=== PATIENT | female | born 1970 | race Caucasian/White ===

== ENCOUNTER 2018-02-05 05:33 | Inpatient (IN) ==
--- NOTE | 2018-01-05 11:58 | Anesthesiology Consultation ---
Date of Service January 05, 2018 Assessment & Plan (1) Encounter for pre-operative examination: Plan: - Patient anxious RE: SAB; history of scoliosis- discussed SAB versus GA- to discuss further AM DOS.* Chart Review Chart Review: Patient seen in Pre Admission Testing Teaching & Discussion Pre-Anesthesia Teaching/Discussion Notes: Instructed NPO after midnight before surgery,except medications with 15 cc of water. Medication instructions provided according to the PAT guidelines. History Surgery Operation Date: 02/05/18 08:30 Proposed Procedures p Left Total Knee Arthroplasty - Marcio Patel DO Height/Weight Height: 5 ft Weight: 94.3 kg Allergies Allergy/AdvReac Type Severity Reaction Status Date / Time Penicillins AdvReac Severe Anaphylaxis Verified 12/29/17 08:45 Medications Home Medications Medication Instructions Recorded Confirmed Last Taken ibuprofen 600 - 800 mg PO QID PRN 12/29/17 12/29/17 Unknown lactobacillus combination no.4 1 tab PO QPM 12/29/17 12/29/17 Unknown [Probiotic] olmesartan 20 mg PO QAM 12/29/17 12/29/17 Unknown omeprazole 20 mg PO QAM 12/29/17 12/29/17 Unknown vitamin X99-gfffp acid 2 tab PO QPM 12/29/17 12/29/17 Unknown Past Medical History Medical History Chronic back pain Diverticular disease GERD (gastroesophageal reflux disease) Hypertension Morbid obesity Osteoarthritis Scoliosis Temporomandibular joint disorder NEVER LOCKED Past Family History Family History Mother Family history of diabetes mellitus Grandmother Family hx of colon cancer Past Surgical History Surgical History History of endometrial ablation History of hysterectomy + USO Hx of laparoscopy 2/2 ENDOMETRIOSIS Past Anesthesia History No Family Hx of Anesthesia Complications Post op grogginess x 1 episode with hysterectomy. History of PONV Yes Motion Sickness Screening History of Motion Sickness: Yes Social History Smoking Status: Never smoker Do You Dip or Chew Tobacco: No Hx Alcohol Use: Yes Alcohol type: wine alcohol intake frequency: holidays/special occasions only Hx Substance Use: No Exercise / Class Metabolic Activity III < 4 Walking/Shop/Light housework Review of Systems Patient denies chest pain, shortness of breath, joint pain, reflux, cough, wheezing, palpitations. Physical Exam Vital Signs VITALS BP 134/83 P 71 TEMP 98.1 RESP 18 SP02 95%RA Full neck and c-spine range of motion. Full TMJ range of motion. TMD 4 finger breaths Mallampati Score 2 Dentition: intact Lungs: clear throughout to auscultation Cardiac: regular rate and rhythm, no murmurs noted Spine: normal Carotid arteries: negative bruit Extremities: no edema Testing Electrocardiogram Date: 01/05/18 Findings: + NSR @ (67) Chest X-Ray Date: 01/05/18 Findings: + NAD Laboratory Results 01/05/18 12:23 01/05/18 11:34 Blood Type O Positive 01/05/18 12:23 Antibody Screen NEGATIVE 01/05/18 12:23 PT 10.1 Seconds (9.0-12.0) 01/05/18 12:23 INR 1.0 (0.9-1.1) 01/05/18 12:23 APTT 25.9 Seconds (21.0-31.0) 01/05/18 12:23
--- NOTE | 2018-01-05 11:59 | PAT Medication Instructions ---
Medication Instructions Date of Service January 05, 2018 Home Medications ibuprofen 600 - 800 mg PO QID PRN lactobacillus combination no.4 1 tab PO QPM olmesartan 20 mg PO QAM omeprazole 20 mg PO QAM vitamin D57-ichwo acid 2 tab PO QPM Per surgeon's instructions ibuprofen 600 - 800 mg PO QID PRN Hold the morning of surgery olmesartan 20 mg PO QAM Take morning of surgery Take the following medication the morning of surgery with a sip of water, OTHERWISE NOTHING TO EAT OR DRINK AFTER MIDNIGHT: omeprazole 20 mg PO QAM Take evening before surgery lactobacillus combination no.4 1 tab PO QPM vitamin S51-fbzux acid 2 tab PO QPM Other Notes If you have any questions please call us at [phone] or [phone] or [phone] or [phone]
--- NOTE | 2018-01-05 12:50 | XRay Report ---
XR chest Pre-admission PA/Lat CLINICAL HISTORY: PAT preoperative evaluation COMPARISON STUDY: No previous studies for comparison. FINDINGS: The bones soft tissues and hemidiaphragms are normal. The cardiomediastinal silhouette is n ormal. The lungs are clear. The pulmonary vasculature is normal. IMPRESSION: Negative chest. The above report was generated using voice recognition software. It may contain grammatical, syntax or spelling errors. Electronically signed by: Srikanth Rice M.D. 01/05/2018 12:49 PM
[2018-01-05 13:10] LABS: Basophils # (auto) 0.02 K/uL (0-0.2); Basophils % (auto) 0.3 %; Eosinophils # (auto) 0.14 K/uL (0-0.5); Eosinophils % (auto) 1.9 %; Hemoglobin 13.6 g/dL (12.0-16.0); Immature Granulocytes # (auto) 0.01 K/uL (0.00-0.02); Immature Granulocytes % (auto) 0.1 %; Lymphocytes # (auto) 2.41 K/uL (1.2-3.4); Mean Corpuscular Hgb Conc 33.2 g/dL (32-36); Mean Corpuscular Volume 89.5 fL (80-100); Mean Platelet Volume 10.1 fL (7.4-10.4); Monocytes # (auto) 0.84 K/uL (0.11-0.59); Monocytes % (auto) 11.2 %; Neutrophils % (auto) 54.5 %; Platelet Count 253 K/uL (130-400); RDW Coefficient of Variation 13.3 % (11.5-14.5); RDW Standard Deviation 43.5 fL (36.4-46.3); Red Blood Count 4.58 M/uL (4.2-5.4); White Blood Count 7.52 K/uL (4.8-10.8)
[2018-01-05 13:27] LABS: Partial Thromboplastin Time 25.9 Seconds (21.0-31.0); Prothrombin Time 10.1 Seconds (9.0-12.0)
[2018-01-05 13:33] LABS: BUN Creatinine Ratio 18.1 (10-20); Calcium 8.6 mg/dl (8.5-10.1); Creatinine Clr Calc Pharmacy 124.7 ml/min; Est GFR (African American) 126.9; Est GFR (Non-African American) 109.5; Potassium 3.9 mmol/L (3.5-5.1)
[2018-02-05] MEDS ORDERED: ACETAMINOPHEN 500 MG TAB PO SCH (06:00)
[2018-02-05] MEDS ORDERED: VANCOMYCIN HCL 1,500 MG in SODIUM CHLORIDE 0.9% 500 ML IV SCH ×2 (06:00→18:00)
[2018-02-05] MEDS ORDERED: FAMOTIDINE 20 MG TAB PO SCH (06:00)
[2018-02-05] MEDS ORDERED: ROPIVACAINE 0.5% HCL/PF 150 MG, BUPIVACAINE 0.5% MPF 30 ML, EPINEPHrine 30MG/30ML (OR U... INFIL SCH (06:00)
[2018-02-05] MEDS ORDERED: GABAPENTIN 300 MG x 3 PO SCH (06:00)
[2018-02-05] MEDS ORDERED: TRANEXAMIC ACID 1,000 MG **IV Pre-op IV SCH (06:00)
[2018-02-05] MEDS ORDERED: LR 60ML/HR IV SCH (06:00)
[2018-02-05] MEDS ORDERED: BUPIVACAINE 0.5 % 5 MG/1 ML PF 10ML VIAL ONE (06:25)
[2018-02-05] MEDS ORDERED: ROPIVACAINE 0.5% 5 MG/ML 30 ML VIAL ONE (06:26)
[2018-02-05] MEDS ORDERED: TRANEXAMIC ACID 1,000 MG **IV Intra-op IV SCH (06:30)
[2018-02-05] MEDS: LR 500ML BOLUS, THEN 15ML/HR IV SCH ×5 (06:33→14:27)
--- NOTE | 2018-02-05 06:40 | History & Physical Report ---
Date of Service February 05, 2018 Assessment & Plan (1) Osteoarthritis of left knee: We will proceed with a left total knee arthroplasty. Postoperatively she will be started on aspirin for DVT prophylaxis. She will be kept in the hospital for postop medical management. She plans to discuss discharge options with case management while she is here in the hospital. Present on Admission?: Yes History of Present Illness Chief Complaint: Primary osteoarthritis of the left knee Primary Care Provider: NO PCP Helen is a pleasant 47-year-old female who has been complaining about chronic increasing left knee pain. She has lateral sided knee pain mostly when she ambulates. She also notices a significant valgus deformity and feels like her foot turns out on her from time to time. X-rays and clinical examination have shown advanced lateral compartmental arthritis in the knee. After failing extensive conservative treatment including physical therapy, cortisone injections, and Synvisc injections, she has elected to proceed with a left total knee arthroplasty. Allergies Allergy/AdvReac Type Severity Reaction Status Date / Time Penicillins AdvReac Severe Anaphylaxis Verified 12/29/17 08:45 Home Medications Home Medications Medication Instructions Recorded Confirmed Type ibuprofen 600 - 800 mg PO QID PRN 12/29/17 12/29/17 History lactobacillus combination no.4 1 tab PO QPM 12/29/17 12/29/17 History [Probiotic] olmesartan 20 mg PO QAM 12/29/17 12/29/17 History omeprazole 20 mg PO QAM 12/29/17 12/29/17 History vitamin S52-dqkgj acid 2 tab PO QPM 12/29/17 12/29/17 History Past Med/Surg History Medical History Chronic back pain Diverticular disease GERD (gastroesophageal reflux disease) Hypertension Morbid obesity Osteoarthritis Scoliosis Temporomandibular joint disorder NEVER LOCKED Surgical History History of endometrial ablation History of hysterectomy + USO Hx of laparoscopy 2/2 ENDOMETRIOSIS Family History Mother Family history of diabetes mellitus Grandmother Family hx of colon cancer Social History Current Living Situation: Spouse and Family Other Information That Helps Us Care for You: No Feels Safe at Home: Yes Safety Concerns: Feels Safe At This Time Smoking Status: Never smoker Do You Dip or Chew Tobacco: No Hx Alcohol Use: Yes Alcohol type: wine Alcohol Intake Frequency: holidays/ special occasions only Hx Substance Use: No Beliefs That Will Affect Care: None Preferred Language: Estonian Communication Ability: Effective Dental Financial Coordinator Required: No Review of Systems All systems reviewed & are unremarkable except as noted in HPI & below Physical Exam 2 Constitutional: WD/WN, vitals as above Eyes: PERRL, conjunctivae normal, anicteric sclerae ENMT: external ear and nose normal, oropharynx normal Neck: trachea midline, no thyromegaly Respiratory: normal respiratory effort Cardiovascular: RRR, no murmur, no edema Gastrointestinal (Abdomen): normal bowel sounds, soft, nontender, no hepatosplenomegaly Musculoskeletal: On physical examination of the left knee there is a trace effusion. There is near full range of motion and no evidence of instability. There is significant tenderness palpation along the medial and lateral joint lines and over the distal femoral condyles. Psychiatric: A+Ox3, euthymic affect Results & Data Diagnostic Findings Radiographs of the left knee demonstrate advanced osteoarthritis with joint space narrowing osteophyte formation and [id number]-jk-lvty articulation. Medications Administered Lactated Ringer's (Lr) 1,000 mls @ 999 mls/hr IV .Q1H1M CONNER Stop: 02/05/18 18:00 Last Admin: 02/05/18 06:33 Dose: 999 mls/hr Vancomycin HCl 1,500 mg/ (Sodium Chloride) 530 mls @ 200 mls/hr IV PREOP CONNER Stop: 02/05/18 18:00 Last Admin: 02/05/18 06:33 Dose: 200 mls/hr
--- NOTE | 2018-02-05 06:50 | History & Physical Bridge Note ---
Date of Service February 05, 2018 History & Physical Bridge Note I have examined the patient, reviewed the History & Physical and in the interval since the performance of the History & Physical I have noted the following changes of clinical significance: no changes noted
[2018-02-05] MEDS ORDERED: MIDAZOLAM HCL 1 MG/ML 2ML VIAL ONE ×2 (07:00→07:01)
[2018-02-05] MEDS ORDERED: fentaNYL citrate 100 MCG/2 ML VIAL ONE ×2 (07:01→09:06)
[2018-02-05] MEDS ORDERED: ORTHO JOINT ANESTHETIC ONE (07:24)
[2018-02-05] MEDS ORDERED: POVIDONE-IODINE OP SOLN 30 ML BTL ONE (07:25)
[2018-02-05] MEDS ORDERED: BACITRACIN INJ 50,000 UNIT VIAL ONE (07:25)
[2018-02-05] MEDS ORDERED: HYDROmorphone INJ 2 MG/ML SYR/VIAL IV PRN (07:42)
[2018-02-05] MEDS ORDERED: ATROPINE SULFATE 0.1 MG/ML 5ML SYR IV PRN (07:42)
[2018-02-05] MEDS ORDERED: ePHEDrine sulfate 50 MG/ML AMP IV PRN (07:42)
[2018-02-05] MEDS ORDERED: SCOPOLAMINE 1.5 MG TDSY ONE (07:44)
[2018-02-05] MEDS ORDERED: ROCURONIUM BROMIDE 10 MG/ML 5 ML VIAL ONE (09:16)
[2018-02-05] MEDS ORDERED: DEXAMETHASONE SOD INJ 4 MG/ML VIAL ONE (09:16)
[2018-02-05] MEDS ORDERED: ONDANSETRON INJ 2 MG/ML 2 ML VIAL ONE (09:16)
[2018-02-05] MEDS ORDERED: NEOSTIGMINE METHYLSULFATE 5 MG/5 ML SYR ONE (09:16)
[2018-02-05] MEDS ORDERED: GLYCOPYRROLATE 0.2 MG/ML VIAL ONE (09:16)
[2018-02-05] MEDS ORDERED: PROPOFOL IV EMULSION 10 MG/ML 20 ML VIAL IV ONE (09:16)
[2018-02-05] MEDS ORDERED: MoRPHine SULFATE 2 MG/ML CARP ONE (09:59)
[2018-02-05] MEDS ORDERED: PHENYLEPHRINE HCL 10 MG/ML VIAL ONE (10:12)
--- NOTE | 2018-02-05 10:13 | Operative Report ---
Post Operative Report Date of Surgery February 05, 2018 Pre & Post Diagnosis Operation Date: 02/05/18 08:30 Pre-Op Diagnosis: Left Knee Degenerative Joint Disease Post-Op Diagnosis: Left Knee Degenerative Joint Disease Procedure Operation Date: 02/05/18 08:30 Actual Procedures p Left Total Knee Arthroplasty(Left) - Marcio Patel DO Surgeon Marcio Patel DO Stroke Coordinator Yovani Hu PAC Estimated Blood Loss 20 Findings Consistent with Post-Op Diagnosis Specimens Tibial and femoral bone Complications none Disposition Disposition: Recovery Room Indications Helen is a pleasant 47-year-old female who is been dealing with chronic increasing left knee pain. X-rays and clinical examination have been diagnostic for advanced osteoarthritis mostly in the lateral compartment of her left knee. After failing extensive conservative treatment she elected to proceed with a left total knee arthroplasty. Description of Procedure Implants used: I used a [employer]omet Vanguard total knee arthroplasty system with a size 65 femur, 67 tibia, 31 patella, and a size 12 PS polyethylene bearing. All components were cemented in place with Palacos G cement. The patient arrived [facility] for the above procedure. There were seen in the preoperative holding area and the operative extremity was identified and signed. There were given a preoperative antibiotic, a spinal anesthetic and an adductor nerve block. There were taken back to the operating room and laid on the table in supine position. There were given basic sedation. The operative knee was then prepped and draped in sterile fashion. A timeout was done, and the patient and the operative extremity was properly identified. A midline incision was made directly over the patella. Dissection was taken down to the extensor mechanism. A sub-vastus arthrotomy was used. The medial retinaculum was released and the fat pad was left intact. The knee was flexed and the ACL, PCL, and meniscus were removed. A drill was sent down the center of the femoral canal followed by an intramedullary yousif. Off that yousif a distal femoral cutting block was placed. 9 mm was resected off the distal femur at 5 of valgus. A posterior referencing AP sizing guide was then placed on the distal femur. The femur measured to be a size 65. 2 drill holes were placed in 3 of external rotation. A 4-in-1 cutting block was then impacted into place. Anterior posterior and chamfer cuts were then made. The posterior stabilizing box guide was then impacted into place and the box was resected for the posterior stabilizing component. The proximal tibia was then exposed. A drill was sent down the center of the tibial canal followed by an intramedullary yousif. Off that yousif a proximal tibial resection guide was placed. The proximal tibia was then resected. The tibia measured to be a size 67. The tibial plate was then placed in the appropriate rotation and the tibia was punched. The posterior aspect of the knee was then opened up and any additional meniscus fragments and osteophytes were removed. Trial components were then placed. I used a size 12 PS polyethylene insert. The knee was brought through a full range of motion and felt to be stable. The patella was then everted and 8 mm was resected off the posterior aspect of the patella. The patella measured to be a size 31. 3 peg holes were then drilled. A trial patella was placed. The knee was once again brought through a full range of motion and felt to be stable. Trial components were then removed. The surrounding soft tissues were injected with 100 cc of an orthopedic pain control cocktail. All components were then cemented into place with Palacos G cement. The final polyethylene insert was then snapped into place and the anterior bar was locked. Once cement was dry the tourniquet was deflated. Hemostasis was obtained. The joint was irrigated with bacitracin which was left in place for 3 minutes. The bacitracin was then irrigated with normal saline solution. The extensor mechanism was then closed with #2 FiberWire suture in the superior medial aspect. The proximal and distal aspects were closed with #1 Vicryl suture. The skin was closed with 2-0 Vicryl, 3-0V lock suture, and john. A soft compressive dressing was placed. The patient was then transferred to a hospital bed and taken to the postanesthesia care unit in stable condition. They tolerated the procedure well. I attest to the content of the Intraoperative Record and any orders documented therein. Any exceptions are noted below.
--- NOTE | 2018-02-05 11:20 | XRay Report ---
XR knee LT 2V routine CLINICAL HISTORY: 47 years-old Female presenting with Surgical Post Op. TECHNIQUE: Frontal and crosstable views of the left knee were obtained. COMPARISON: 05/12/2017. FINDINGS: Post-surgical changes of total left knee arthroplasty with patellar resurfacing. Expected intra-artic ular and soft tissue emphysema. Mild diffuse soft tissue swelling. Overlying skin john. Screw trac ks evident in the medial tibial plateau. No periprosthetic fracture. No malalignment. No hardware com plication. IMPRESSION: Expected postsurgical appearance status post total left knee arthroplasty with patellar resurfacing. Electronically signed by: Len Lemon M.D. 02/05/2018 11:19 AM
--- NOTE | 2018-02-05 12:01 | Anesthesiology Progress Note ---
Date of Service February 05, 2018 Anesthesia Post Procedure Vital Signs Vital Signs: Temp Pulse Resp BP Pulse Ox 02/05/18 11:55 60 18 136/78 94 02/05/18 11:45 36.2 C L 60 20 136/79 93 02/05/18 11:35 63 22 148/84 H 96 02/05/18 11:25 36.4 C L 60 16 145/90 H 96 02/05/18 11:15 62 16 143/90 H 96 02/05/18 11:05 59 L 18 134/87 95 02/05/18 10:55 59 L 16 143/90 H 98 02/05/18 10:47 36.1 C L 86 22 163/99 H 98 02/05/18 06:41 37 C 90 16 162/101 H 93 Pain Intensity Head: Pain Intensity: 5 Left Knee: Pain Intensity: 0 Notes Mental Status: alert / awake / arousable Patient Amnestic to Procedure: Yes Nausea / Vomiting: adequately controlled Pain: adequately controlled Airway Patency, RR, SpO2: stable & adequate BP & HR: stable & adequate Hydration State: stable & adequate Anesthetic Complications: no major complications apparent and Pt Satisfied with anesthetic care
[2018-02-05] MEDS ORDERED: METOCLOPRAMIDE HCL INJ 5 MG/ML 2 ML VIAL IV PRN (12:25)
[2018-02-05] MEDS ORDERED: MoRPHine SULFATE 2 MG/ML CARP IV PRN (12:25)
[2018-02-05] MEDS ORDERED: MAGNESIUM HYDROXIDE SUSP 30 ML UDC PO PRN (12:25)
[2018-02-05] MEDS ORDERED: ONDANSETRON INJ 2 MG/ML 2 ML VIAL IV PRN (12:25)
[2018-02-05] MEDS ORDERED: OXYCODONE HCL IR 5 MG TAB (IMMEDIATE RELEASE) PO PRN (12:25)
[2018-02-05] MEDS ORDERED: BISACODYL 10 MG SUPP PR PRN (12:25)
[2018-02-05] MEDS ORDERED: VANCOMYCIN CONSULT ACTIVE PRN (12:25)
[2018-02-05] MEDS ORDERED: SODIUM CHLORIDE 0.9% 1000ML 1,000 ML IV SCH (12:25)
[2018-02-05] MEDS ORDERED: Nursing to Pharmacy Communication ONE (13:59)
[2018-02-05] MEDS: ACETAMINOPHEN 500 MG TAB PO SCH ×2 (14:14→20:45)
[2018-02-05] MEDS: KETOROLAC 30 MG/ML VIAL IV SCH ×2 (14:14→19:09)
[2018-02-05] MEDS: DOCUSATE SODIUM 100 MG CAP PO SCH (20:45)
[2018-02-05] MEDS: SENNA 8.6 MG TAB PO SCH (20:45)
[2018-02-05] MEDS: ASPIRIN 81 MG ECTAB PO SCH (20:45)
[2018-02-06] MEDS: KETOROLAC 30 MG/ML VIAL IV SCH ×4 (01:37→20:09)
[2018-02-06 05:58] LABS: Hematocrit (blood only) 36.5 % (37-47); Hemoglobin 11.8 g/dL (12.0-16.0); Mean Corpuscular Hgb Conc 32.3 g/dL (32-36); Mean Corpuscular Volume 89.2 fL (80-100); Mean Platelet Volume 9.2 fL (7.4-10.4); Platelet Count 227 K/uL (130-400); RDW Coefficient of Variation 13.7 % (11.5-14.5); RDW Standard Deviation 45.1 fL (36.4-46.3); Red Blood Count 4.09 M/uL (4.2-5.4); White Blood Count 17.27 K/uL (4.8-10.8)
[2018-02-06 06:30] LABS: BUN Creatinine Ratio 17.6 (10-20); Calcium 7.9 mg/dl (8.5-10.1); Creatinine Clr Calc Pharmacy 119.5 ml/min; Est GFR (African American) 125.4; Est GFR (Non-African American) 108.2; Potassium 3.8 mmol/L (3.5-5.1)
[2018-02-06] MEDS: PANTOprazole 40 MG TAB PO SCH (06:51)
[2018-02-06] MEDS: ACETAMINOPHEN 500 MG TAB PO SCH ×3 (06:52→21:58)
--- NOTE | 2018-02-06 07:18 | Orthopedic Progress Note ---
Date of Service February 06, 2018 Assessment & Plan (1) Osteoarthritis of left knee: Overall she is doing fairly well. She will be seen by physical therapy today for ambulation. We will continue the IV Toradol and oral oxycodone for pain control. Tomorrow morning we plan to change the dressing if she is doing well she can be discharged to home. Present on Admission?: Yes Subjective Helen was seen and examined at bedside this morning. Overall she is doing fairly well. She is not having much pain in her knee. She was up and ambulating to the bathroom several times last night without difficulty. She is happy that her leg is straight. She has no complaints. Physical Exam 2 Vital Signs (Past 24 Hours): Last Vital Signs Temp 36.9 C 02/06/18 03:45 Pulse 87 02/06/18 03:45 Resp 16 02/06/18 03:45 BP 117/74 02/06/18 03:45 Pulse Ox 91 02/06/18 03:45 Musculoskeletal: On physical examination of the left knee, the dressing is clean and dry. Her legs out in full extension. She is a AMERICA hose stocking in place. She has active dorsiflexion and plantarflexion of her left ankle. Results & Data Laboratory Results H & H 01/05/18 02/06/18 Range/Units 12:23 05:43 Hgb 13.6 11.8 L (12.0-16.0) g/dL Hct 41.0 36.5 L (37-47) % Coagulation 01/05/18 Range/Units 12:23 INR 1.0 (0.9-1.1) Diagnostic Findings X-rays postoperatively of the left knee show the prosthesis to be in anatomic alignment without any evidence of fracture, dislocation, or loosening.
[2018-02-06] MEDS: DOCUSATE SODIUM 100 MG CAP PO SCH ×2 (09:18→20:09)
[2018-02-06] MEDS: ASPIRIN 81 MG ECTAB PO SCH ×2 (09:18→20:10)
[2018-02-06] MEDS: OLMESARTAN MEDOXOMIL 20 MG TAB PO SCH (09:18)
[2018-02-06] MEDS: SENNA 8.6 MG TAB PO SCH (20:10)
[2018-02-07] MEDS: KETOROLAC 30 MG/ML VIAL IV SCH ×2 (01:58→07:59)
[2018-02-07] MEDS: ACETAMINOPHEN 500 MG TAB PO SCH (06:02)
[2018-02-07] MEDS: ASPIRIN 81 MG ECTAB PO SCH (07:54)
[2018-02-07] MEDS: OLMESARTAN MEDOXOMIL 20 MG TAB PO SCH (07:54)
[2018-02-07] MEDS: PANTOprazole 40 MG TAB PO SCH (07:55)
[2018-02-07] MEDS: DOCUSATE SODIUM 100 MG CAP PO SCH (08:20)
--- NOTE | 2018-02-07 09:07 | Orthopedic Progress Note ---
Date of Service February 07, 2018 Assessment & Plan (1) Osteoarthritis of left knee: Overall she is doing fairly well. She is having a little more soreness today which is to be expected. She is on aspirin for DVT prophylaxis. We will discharge her to home later today. She will follow-up with orthopedics in 2 weeks. Present on Admission?: Yes Subjective Helen was seen and examined at bedside this morning. Overall she is doing fairly well. She is having a little more soreness in her leg today than she did yesterday. She has no complaints. Physical Exam 2 Vital Signs (Past 24 Hours): Last Vital Signs Temp 36.9 C 02/07/18 06:27 Pulse 78 02/07/18 06:27 Resp 16 02/07/18 06:27 BP 147/80 H 02/07/18 06:27 Pulse Ox 94 02/07/18 06:27 Musculoskeletal: On physical examination of the left leg, the dressing is clean and dry. Her legs out in full extension. She is active dorsiflexion and plantarflexion of her left ankle. Sensation is intact.
--- NOTE | 2018-02-07 09:09 | Discharge Summary ---
Date of Service February 07, 2018 Admission HPI Per Admitting Provider Helen is a pleasant 47-year-old female who has been complaining about chronic increasing left knee pain. She has lateral sided knee pain mostly when she ambulates. She also notices a significant valgus deformity and feels like her foot turns out on her from time to time. X-rays and clinical examination have shown advanced lateral compartmental arthritis in the knee. After failing extensive conservative treatment including physical therapy, cortisone injections, and Synvisc injections, she has elected to proceed with a left total knee arthroplasty. Specialty Data Orthopedic H & H 01/05/18 02/06/18 Range/Units 12:23 05:43 Hgb 13.6 11.8 L (12.0-16.0) g/dL Hct 41.0 36.5 L (37-47) % Coagulation 01/05/18 Range/Units 12:23 INR 1.0 (0.9-1.1) Discharge Data Consultations 02/05/18 12:25 Consult Case Management - Discharge Planning Routine Procedures Performed Operation Date: 02/05/18 08:30 Actual Procedures p Left Total Knee Arthroplasty(Left) - Marcio Patel DO Hospital Course (1) Osteoarthritis of left knee: On February 05, 2018 Helen arrived at [facility] and underwent a left total knee arthroplasty without complication. She had a general anesthetic and a left abductor nerve block. Postoperatively she was started on aspirin for DVT prophylaxis and discharged to general orthopedic floors. Her hospital course was uneventful. On postop day #1 her H&H was stable and her pain was well controlled. She was able to ambulate well with physical therapy. On postop day #2 she continued to do well. Her pain was controlled on the oral pain medications. She was discharged to home with home physical therapy. She will follow-up with orthopedics in 2 weeks. Discharge Instructions Home Medications Medication Instructions Recorded Confirmed ibuprofen 600 - 800 mg PO QID PRN 12/29/17 02/05/18 lactobacillus combination no.4 1 tab PO QPM 12/29/17 02/05/18 [Probiotic] olmesartan 20 mg PO QAM 12/29/17 02/05/18 omeprazole 20 mg PO QAM 12/29/17 02/05/18 vitamin G52-utsui acid 2 tab PO QPM 12/29/17 02/05/18 Previous Rx's Medication Instructions Recorded aspirin [Ecotrin Low Strength] 81 mg PO BID #84 tab 02/07/18 oxycodone 5 - 10 mg PO Q4H PRN #30 tab 02/07/18
== END 2018-02-07 10:49 | disposition home health service (06) | DRG 470 ==
LOC: ASU 05:33 → 3E 10:17